=== PATIENT | male | born 1950 | race Caucasian/White ===

== ENCOUNTER → 2019-01-05 | Outpatient (CLI) | payer OTHER ==
--- NOTE | 2019-01-05 14:19 | RAD ---
EXAM: Knee,Right Complete CLINICAL HISTORY: PAIN IN RIGHT KNEE COMPARISON STUDY: None TECHNICAL: AP, lateral, oblique and sunrise x-rays of the right knee FINDINGS: Moderate to severe joint space loss of the medial compartment and minimal joint space loss of the lateral compartment. There are moderate to severe periarticular osteoarthritic changes medial and mild lateral. Patellofemoral joint shows mild to moderate osteoarthritic changes. There is no fracture or dislocation. There is a small joint effusion. Calcification is present within the lateral meniscus. IMPRESSION: 1. Moderate to severe osteoarthritic changes of the right knee medial compartment. 2. Milder osteophytic changes of the patellofemoral joint and lateral compartment. 3. Chondrocalcinosis of the lateral meniscus. Electronically signed by: Nishant Baron MD 01/05/2019 2:16 PM [facility]
--- NOTE | 2019-01-05 14:20 | RAD ---
EXAM: Pelvis and hip CLINICAL HISTORY: Pain COMPARISON STUDY: None TECHNICAL: AP pelvis FINDINGS: The pelvic ring is intact and negative. Both hips are in anatomic alignment. There is no identifiable fracture. There is no osseous abnormality. There are asymmetric degenerative disc changes the right side at L4-5 and L5-S1. IMPRESSION: Negative pelvis. Moderate degenerative disc changes at L4-5 and L5-S1. Electronically signed by: Nishant Baron MD 01/05/2019 2:17 PM [facility]
== END ==
LOC: RAD 09:00
PROVIDERS: ATTEND Orthopaedic Surgery
DX: M17.11 Unilateral primary osteoarthritis, right knee (principal); M51.36 Other intervertebral disc degeneration, lumbar region; M11.261 Other chondrocalcinosis, right knee; M25.551 Pain in right hip; M25.561 Pain in right knee

== ENCOUNTER 2019-01-06 05:34 | Inpatient (IN) | payer MEDICARE, OTHER ==
--- NOTE | 2018-12-22 08:31 | HP ---
CHIEF COMPLAINT: Right knee pain. HISTORY OF PRESENT ILLNESS: Mr. Orellana has a history of severe knee pain which has been refractory to conservative measures. Because of the refractory nature of his pain and his ongoing difficulty with daily activities, he has requested operative intervention. After discussing the risks, benefits and alternatives to that, he has given informed consent. PAST SURGICAL HISTORY: 1. Cardiac stent placement. 2. Cataract removal. 3. Partial knee replacement. MEDICATIONS: 1. Metoprolol. 2. Atorvastatin. 3. Pantoprazole. 4. Meloxicam. 5. Lisinopril. 6. Gabapentin. 7. Trulicity. 8. Multivitamins. 9. Triamterene. ALLERGIES: CODEINE. CODE STATUS: DNR. IMMUNIZATIONS: Up to date. FAMILY HISTORY: None pertinent to today's complaint. SOCIAL HISTORY: The patient does not drink, smoke or use any illicit drugs. REVIEW OF SYSTEMS: Negative except as indicated in the History of Present Illness. PHYSICAL EXAMINATION: VITAL SIGNS: Blood pressure 146/88. Pulse 64. Height 5'11". Weight 257 pounds. MENTAL STATUS: The patient is awake, alert, and is able to give a good history and participate in the physical. The patient is oriented to person, place and time. SKIN: Normal tone and turgor. HEENT: Normocephalic, atraumatic. Pupils equal, round and reactive. Mucosal membranes are moist. NECK: Normal range of motion. No thyromegaly, no lymphadenopathy. CHEST: Normal respiratory excursion. CARDIAC: Regular rate and rhythm. No murmurs, rubs or gallops. MUSCULOSKELETAL: The bilateral upper extremities show full active range of motion. He has intact sensation and they are warm and well perfused. He has no deformities, no crepitus. The left lower extremity shows full range of motion of the hip. He has full extension of the knee with flexion to about 125 degrees. He has no varus/valgus or anterior/posterior laxity. He does have some discomfort with palpation of the knee. Strength is 5/5. The extremity is warm and well perfused. The right lower extremity shows full range of motion of the hip. He has pain throughout the knee with palpation. He has crepitus throughout his range of motion, but maintains full extension with flexion to about 125 degrees. The entire extremity is warm and well perfused. He does have a slight varus deformity. IMAGING: X-rays show advanced arthritis. ASSESSMENT: 1. Arthritis. PLAN: The plan at this point is for total knee arthroplasty. We have discussed the risks, benefits, and alternatives to that and the patient has given informed consent. #[id number] [facility]TDD
[2019-01-06] MEDS ORDERED: TRANEXAMIC ACID 1,000 MG/10 ML VIAL ONE ×2 (05:49→05:50)
[2019-01-06] MEDS ORDERED: SODIUM CHL 0.9% 100ML MINI-BAG 100 ML IVPB ONE (05:49)
[2019-01-06] MEDS ORDERED: LACTATED RINGERS 1,000 ML ONE ×2 (05:49→09:59)
[2019-01-06] MEDS ORDERED: ceFAZolin SODIUM 1 GM VIAL ONE ×2 (05:50→06:31)
[2019-01-06] MEDS ORDERED: SODIUM CHLORIDE 0.9% 100ML 100 ML IVPB ONE (05:50)
[2019-01-06] MEDS ORDERED: SODIUM CHLORIDE 0.9% 250ML 250 ML ONE ×2 (05:50→17:34)
[2019-01-06] MEDS ORDERED: VANCOMYCIN HCL INJ 1,000 MG VIAL IVPB ONE ×2 (05:50→17:34)
[2019-01-06] MEDS ORDERED: ACETAMINOPHEN IV 1000MG 100 ML ONE (06:36)
[2019-01-06] MEDS ORDERED: MORPHINE SULF *EPIDURAL* 1 MG/ML VIAL ONE (06:37)
[2019-01-06] MEDS ORDERED: MIDAZOLAM INJ 2 MG/2 ML VIAL ONE (06:37)
[2019-01-06] MEDS ORDERED: fentaNYL CITRATE INJ 50 MCG/ML AMP ONE (06:37)
[2019-01-06] MEDS: VANCOMYCIN HCL INJ 1,000 MG VIAL IVPB ONE ×2 (07:46→09:03)
[2019-01-06] MEDS: ceFAZolin SODIUM 1 GM VIAL ONE ×2 (07:46→09:03)
[2019-01-06] MEDS: BUPIVACAINE LIPOSOME 13.3 MG/ML VIAL INJ ONE ×2 (07:47→09:03)
[2019-01-06] MEDS: BUPIVACAINE 0.5% 30 ML VIAL INJ ONE ×2 (07:47→09:03)
[2019-01-06] MEDS ORDERED: BUPIVACAINE LIPOSOME 13.3 MG/ML VIAL INJ ONE (08:26)
[2019-01-06] MEDS ORDERED: CYCLOBENZAPRINE HCL 10 MG TAB PO PRN (09:31)
[2019-01-06] MEDS ORDERED: BENZOCAINE-MENTH LOZ (CEPACOL) 1 EA LOZ MT PRN (09:31)
[2019-01-06] MEDS ORDERED: SODIUM CHLORIDE 0.9% (FLUSH) 10 ML SYG IV PRN (09:31)
[2019-01-06] MEDS ORDERED: NALOXONE HCL INJ 0.4 MG/ML VIAL IV PRN (09:31)
[2019-01-06] MEDS ORDERED: ACETAMINOPHEN 325 MG TAB PO PRN (09:31)
[2019-01-06] MEDS ORDERED: MORPHINE SULFATE INJ 10 MG/ML VIAL IM PRN (09:31)
[2019-01-06] MEDS ORDERED: ALUMINUM & MAGNESIUM HYDROXIDE 30 ML UD PO PRN (09:31)
[2019-01-06] MEDS ORDERED: TRANEXAMIC ACID INJ 1,000 MG in SODIUM CHLORIDE 0.9% 100ML 100 ML IVPB ONE (09:31)
[2019-01-06] MEDS ORDERED: PROMETHAZINE HCL INJ 12.5 MG in SODIUM CHLORIDE 0.9% 50ML 50 ML IVPB PRN (09:31)
[2019-01-06] MEDS ORDERED: ONDANSETRON INJ 4 MG/2 ML VIAL IV PRN (09:31)
[2019-01-06] MEDS ORDERED: TEMAZEPAM 15 MG CAP PO PRN (09:31)
[2019-01-06] MEDS ORDERED: MORPHINE SULFATE INJ 10 MG/ML VIAL IV PRN (09:31)
[2019-01-06] MEDS ORDERED: BISACODYL SUPPOSITORY 10 MG PR PRN (09:31)
[2019-01-06] MEDS ORDERED: ZOLPIDEM TARTRATE 5 MG TAB PO PRN (09:31)
[2019-01-06] MEDS ORDERED: HYDROcodone 5MG/APAP 325MG 1 EA TAB PO PRN (09:31)
[2019-01-06] MEDS ORDERED: MAGNESIUM HYDROXIDE 30 ML UD PO PRN (09:31)
[2019-01-06] MEDS ORDERED: ACETAMINOPHEN 500 MG TAB PO PRN (09:31)
[2019-01-06] MEDS ORDERED: PROMETHAZINE HCL INJ 25 MG in SODIUM CHLORIDE 0.9% 50ML 50 ML IVPB PRN (09:31)
[2019-01-06] MEDS ORDERED: DEX 5% W/NACL 0.45% 1000ML 1,000 ML IVS PRN (09:31)
[2019-01-06] MEDS ORDERED: METOCLOPRAMIDE HCL INJ 10 MG/2 ML VIAL IV ONE (10:00)
[2019-01-06] MEDS ORDERED: PROPOFOL 200 MG/20 ML VIAL IV ONE (10:00)
[2019-01-06] MEDS ORDERED: SODIUM CHLORIDE 0.9% 50 ML VIAL INJ ONE (10:00)
[2019-01-06] MEDS ORDERED: raNITIdine HCL INJ 25 MG/ML VIAL IV ONE (10:00)
[2019-01-06] MEDS ORDERED: MORPHINE PCA 1 MG/ML 100 ML BAG IVPB SCH (10:00)
[2019-01-06] MEDS ORDERED: IV SET AND CAP CHANGE INJ INJ SCH (10:00)
[2019-01-06] MEDS ORDERED: PHENYLEPHRINE INJ 1ML 10 MG/ML VIAL IV ONE (10:00)
[2019-01-06] MEDS ORDERED: LIDOCAINE 1% 10 ML VIAL INJ ONE (10:00)
[2019-01-06] MEDS ORDERED: ePHEDrine SULF 50 MG/ML IV ONE (10:00)
[2019-01-06] MEDS ORDERED: DEXAMETHASONE INJ 10 MG/ML VIAL IV ONE (10:00)
--- NOTE | 2019-01-06 14:12 | RAD ---
EXAM DESCRIPTION: Knee,Right 2 or More Views CLINICAL HISTORY: TKA COMPARISON: January 05, 2019 IMPRESSION: 2 views of the right knee show interval postsurgical changes from total knee arthroplasty with cement fixation of the tibial and femoral components. Soft tissue emphysema from recent surgery is seen. Mild vascular calcifications are seen. Electronically signed by: Joaquin Grove MD 01/06/2019 2:10 PM [facility]
[2019-01-06] MEDS ORDERED: GLUCAGON INJ 1 MG VIAL SUBCU PRN (15:17)
[2019-01-06] MEDS ORDERED: DEXTROSE 50% 25 GM/50 ML SYG IV PRN (15:17)
--- NOTE | 2019-01-06 15:32 | CONS ---
SUPERVISING PHYSICIAN: Joaquim Fisher MD CHIEF COMPLAINT: Right knee pain. HISTORY OF PRESENT ILLNESS: Mr. Orellana is a 68-year-old male patient that has a longstanding history of severe knee pain that has not responded to conservative treatment measures. The pain is starting to interfere with his activities of daily living and due to the refractory nature of the pain, he requested elective total knee arthroplasty. Today, he was admitted for an elective right total knee arthroplasty. He had no intraoperative complications. He was seen in the immediate postoperative state in stable condition. PAST MEDICAL HISTORY: 1. Type 2 diabetes mellitus, on Trulicity. 2. Hypertension. 3. History of coronary artery disease with history of previous myocardial infarction and 3 coronary stents. 4. Osteoarthritis. PAST SURGICAL HISTORY: 1. Bilateral cataracts. 2. Partial left knee replacement. 3. Cardiovascular stents x3. CURRENT MEDICATIONS: 1. Metamucil daily. 2. Trulicity 0.75 mg weekly. 3. Triamterene/hydrochlorothiazide 37.5-25 mg 1 daily. 4. Kenalog ointment as needed. 5. Tramadol 50 mg as needed. 6. Protonix 40 mg daily. 7. Metoprolol succinate ER 50 mg daily. 8. Mobic 15 mg daily. 9. Lisinopril 10 mg daily. 10. Neurontin 300 mg b.i.d. 11. Lipitor 40 mg at bedtime. 12. Proventil nebulizers 2.5 mg inhaled daily. ALLERGIES: CODEINE. FAMILY HISTORY: Mother at 87 years of age secondary to congestive heart failure. Father at age 70 with emphysema. He has 3 brothers, one at age 66 secondary to kidney cancer, another at age 5 years of age secondary to gunshot wound, and an 85-year-old brother that had a blood clot. He has two sisters that are fairly healthy. One has issues with seizures. Another had gout and arthritis. He has two children, one boy that has psoriatic arthritis and another one is healthy. SOCIAL HISTORY: The patient lives in [place], [place]. He is . He has a previous history of tobacco abuse, but stopped 7 years previously. Before that, he smoked for 50 years, 2 to 3 packs a day. He does not drink alcohol and denies any illicit drug use. REVIEW OF SYSTEMS: CONSTITUTIONAL: Denies any fevers, chills, general malaise or unexplained weight loss or gain. HEENT: Negative for headaches, visual change, sore throat, earaches. RESPIRATORY: Negative for shortness of breath, wheezing or cough. CARDIOVASCULAR: Negative for chest pain, palpitations or syncopal episodes. He has a history of previous myocardial infarction with 3 stents placed. GASTROINTESTINAL: Negative for nausea or vomiting, diarrhea, abdominal pain or constipation. GENITOURINARY: Negative for dysuria, hematuria, polyuria. EXTREMITIES: Per history of present illness. NEUROLOGIC: Negative for seizure activity, ataxia, syncopal episodes, headaches. HEMATOLOGICAL: Negative for any unexplained bleeding, easy bruising. INTEGUMENTARY: Negative for rashes, lesions or sores. PHYSICAL EXAMINATION: VITAL SIGNS: Temperature 97.1. Pulse 76. Blood pressure 102/63. Respiratory rate 16. Saturation 94% on 2 liters nasal cannula at rest. Admission weight 115.0 kg. GENERAL: The patient appears to be comfortable, in no acute distress. He alert. HEENT: Tympanic membranes clear bilaterally. Oropharynx is pink, moist without any lesions. NECK: Supple, nontender with full range of motion. No jugular venous distention noted. RESPIRATORY: Lungs clear to auscultation bilaterally without any rhonchi, wheezes, or rales. CARDIOVASCULAR: Regular rate and rhythm without any appreciable murmurs, gallops, or rubs. ABDOMEN: Obese, but soft, nontender. Positive bowel sounds. EXTREMITIES: The right knee has Iceman and bulky dressing in place. Distally, pulses are 2+ bilaterally with capillary refill brisk. NEUROLOGIC: The patient is alert and oriented times three. SKIN: Warm, pink and dry. LABORATORY: Postoperative hemoglobin and hematocrit pending. Urine drug screen was negative. ASSESSMENT: 1. Severe osteoarthritis of the right knee, failing to respond to conservative treatment measures requiring surgical intervention with right total knee arthroplasty for symptom control, performed by Dr. Luke Lim. Postoperative day 0. 2. History of hypertension. 3. History of type 2 diabetes mellitus, on Trulicity. 4. History of coronary artery disease with previous myocardial infarction in 2013 and 3 previous coronary stents. PLAN: We will follow the patient as he progresses through his postoperative state, physical therapy and rehabilitation efforts. The family and the patient have discussed discharge planning and they have planned and set up arrangements to have continued treatment through the [facility] in [place], [place]. We will defer orthopedic management to Dr. Lim and physical therapy. We will continue to monitor the patient as needed. We will anticipate length of stay to be 2 to 3 days. We will resume his home medications as appropriate once those have been updated and verified. He will be on DVT prophylaxis per protocol. He will also be on insulin sliding scale per protocol. Until he can transition to outpatient management, we will continue to monitor and treat as needed. #[id number] [facility]
[2019-01-06] MEDS ORDERED: ceFAZolin SODIUM 2 GRAMS PREMI 50 ML IVPB ONE ×2 (16:54→19:28)
[2019-01-06] MEDS: INSULIN LISPRO 100 UNITS/ML PEN SUBCU SCH ×2 (16:59→20:53)
[2019-01-06] MEDS: CELECOXIB 100 MG CAP PO SCH (17:26)
[2019-01-06] MEDS: ceFAZolin SODIUM 2 GRAMS PREMI 2 GM in PREMIX BAG 1 BAG IVPB SCH ×2 (17:27→23:34)
[2019-01-06] MEDS: VANCOMYCIN HCL INJ 1,000 MG in SODIUM CHLORIDE 0.9% 250ML 250 ML IVPB SCH (18:04)
[2019-01-06] MEDS: SODIUM CHLORIDE 0.45% 1000ML 1,000 ML IVS PRN (19:05)
[2019-01-06] MEDS ORDERED: ENOXAPARIN SODIUM 30 MG/0.3 ML SYG SUBCU ONE (19:30)
[2019-01-06] MEDS: GABAPENTIN 300 MG CAP PO SCH (20:52)
[2019-01-06] MEDS: ATORVASTATIN 20 MG TAB PO SCH (20:52)
[2019-01-06] MEDS: DOCUSATE CALCIUM 240 MG CAP PO SCH (20:52)
[2019-01-06] MEDS: METOPROLOL SUCCINATE XL 50 MG TAB PO SCH (20:53)
[2019-01-06] MEDS: ENOXAPARIN SODIUM 30 MG/0.3 ML SYG SUBCU SCH (23:35)
[2019-01-07] MEDS ORDERED: VANCOMYCIN HCL INJ 1,000 MG VIAL IVPB ONE (00:33)
[2019-01-07] MEDS ORDERED: PANTOPRAZOLE SODIUM TAB 40 MG PO ONE (00:33)
[2019-01-07] MEDS ORDERED: SODIUM CHLORIDE 0.9% 250ML 250 ML ONE (00:33)
[2019-01-07] MEDS ORDERED: diphenhydrAMINE HCL 50 MG/ML VIAL ONE (01:46)
[2019-01-07] MEDS ORDERED: diphenhydrAMINE HCL 50 MG/ML VIAL IV PRN (01:47)
[2019-01-07] MEDS: VANCOMYCIN HCL INJ 1,000 MG in SODIUM CHLORIDE 0.9% 250ML 250 ML IVPB SCH (06:10)
[2019-01-07] MEDS: PANTOPRAZOLE SODIUM TAB 40 MG PO SCH (06:12)
[2019-01-07] MEDS: INSULIN LISPRO 100 UNITS/ML PEN SUBCU SCH ×4 (07:42→20:55)
[2019-01-07] MEDS ORDERED: ceFAZolin SODIUM 2 GRAMS PREMI 50 ML IVPB ONE (07:44)
[2019-01-07] MEDS: CELECOXIB 100 MG CAP PO SCH ×2 (07:52→16:46)
[2019-01-07] MEDS: ceFAZolin SODIUM 2 GRAMS PREMI 2 GM in PREMIX BAG 1 BAG IVPB SCH (07:54)
[2019-01-07] MEDS: GABAPENTIN 300 MG CAP PO SCH ×2 (08:23→20:39)
[2019-01-07] MEDS: HCTZ 25 MG/TRIAMTERENE 37.5 MG 1 EA CAP PO SCH (08:23)
[2019-01-07] MEDS: MAGNESIUM OXIDE 400 MG TAB PO SCH (08:23)
[2019-01-07] MEDS: traMADol HCL 50 MG TAB PO PRN ×3 (08:23→16:45)
[2019-01-07] MEDS: LISINOPRIL 10 MG TAB PO SCH (08:24)
[2019-01-07] MEDS: PSYLLIUM 48.57% PO SCH (08:28)
[2019-01-07] MEDS: ENOXAPARIN SODIUM 30 MG/0.3 ML SYG SUBCU SCH ×2 (10:42→22:49)
--- NOTE | 2019-01-07 13:01 | PN ---
DATE: 01/06/19 POSTOPERATIVE CHECK SUBJECTIVE: Mr. Orellana is doing well. He has no pain. OBJECTIVE: Afebrile. Vital signs stable. Dressing is clean, dry and intact. ASSESSMENT: Status post total knee arthroplasty. PLAN: He will begin weightbearing as tolerated on postoperative day 1. #[id number] [facility]
--- NOTE | 2019-01-07 13:03 | PN ---
DATE: 01/07/19 SUBJECTIVE: Mr. Orellana is doing well. He is up to a chair and has walked with physical therapy. OBJECTIVE: Afebrile. Vital signs stable. Dressing is clean, dry and intact. ASSESSMENT: Status post total knee arthroplasty. PLAN: The plan at this point is for him to continue weightbearing as tolerated. We will consider discharge on postoperative day 2. #[id number] [facility]D
[2019-01-07] MEDS: SODIUM CHLORIDE 0.45% 1000ML 1,000 ML IVS PRN (18:33)
[2019-01-07] MEDS ORDERED: ALBUTEROL SULFATE 2.5 MG/3 ML VIAL NEB PRN (18:40)
[2019-01-07] MEDS ORDERED: SODIUM CHLORIDE 0.9% 500ML 500 ML IVS ONE (18:47)
[2019-01-07] MEDS: KCL 20MEQ/0.45% NS 1,000 ML IVS PRN (19:40)
[2019-01-07] MEDS: ATORVASTATIN 20 MG TAB PO SCH (20:39)
[2019-01-07] MEDS: METOPROLOL SUCCINATE XL 50 MG TAB PO SCH ×2 (20:39)
[2019-01-07] MEDS: DOCUSATE CALCIUM 240 MG CAP PO SCH (20:39)
--- NOTE | 2019-01-07 20:46 | PN ---
DATE: 01/07/19 SUPERVISING PHYSICIAN: Joaquim Fisher M.D. SUBJECTIVE: The patient this morning did fairly well with his physical therapy. His pain is fairly well controlled. Blood pressures have a tendency to show some mild hypotension. Will closely monitor his O's. He is not showing any other symptoms and he has been afebrile but without any evidence of tachycardia. OBJECTIVE: VITAL SIGNS: Temperature 99.1, pulse 67, blood pressure 115/71, respirations 18, satting 92% on room air. I's and O's show a positive balance of 190 with 1070 in, 880 out with weight at 115.0 kg. CHEST: Clear to auscultation. HEART: Regular rate and rhythm. ABDOMEN: Obese but soft, non- tender. Positive bowel sounds. EXTREMITIES: Right knee has a bulky dressing in place. Capillary refill is brisk, 2+ bilateral lower extremity pulses with sensation intact. NEUROLOGIC: He is alert and oriented times three. LABORATORY: Postoperative H&H is 12.8 and 38.7 respectively. ASSESSMENT: 1. Severe osteoarthritis involving the right knee, failing to respond to conservative outpatient treatment measures requiring elective surgical intervention with right total knee arthroplasty for symptom control, performed by Dr. Luke Lim. Postoperative day #1. 2. History of hypertension, stable. 3. History of type 2 diabetes mellitus, on Trulicity showing to be fairly stable. 4. History of coronary artery disease with previous myocardial infarction in 2013 and 3 previous coronary stents. PLAN: Will continue to follow the patient as he progresses through his postoperative phase of rehabilitation and physical therapy. Will defer further orthopedic management to Dr. Lim and physical therapist. Will continue to monitor his vital signs and treat his blood pressure as needed. Will resume his medications. Will hopefully be able to anticipate discharging in the next 24 to 48 hours. Plan at discharge would be to continue with [facility] rehabilitation in [place], [place]. Until he can transition to outpatient management will continue to monitor and treat as needed. #[id number] [facility]
[2019-01-08] MEDS: KCL 20MEQ/0.45% NS 1,000 ML IVS PRN (03:08)
[2019-01-08] MEDS: traMADol HCL 50 MG TAB PO PRN (06:14)
[2019-01-08] MEDS: PANTOPRAZOLE SODIUM TAB 40 MG PO SCH (06:14)
[2019-01-08] MEDS: INSULIN LISPRO 100 UNITS/ML PEN SUBCU SCH (07:24)
[2019-01-08] MEDS: CELECOXIB 100 MG CAP PO SCH (07:47)
--- NOTE | 2019-01-08 08:40 | PN ---
DATE: 01/08/19 SUBJECTIVE: Mr. Orellana is doing well and he is requesting discharge today. OBJECTIVE: Afebrile. Vital signs stable. Wound is clean. There are no signs or symptoms of infection. ASSESSMENT: Status post total knee arthroplasty. PLAN: The plan at this point is to discharge Mr. Orellana with appropriate followup. He will begin outpatient physical therapy. #[id number] [facility]
--- NOTE | 2019-01-08 08:45 | OP ---
DATE OF PROCEDURE: 01/06/19 PREOPERATIVE DIAGNOSIS: 1. Osteoarthritis of the knee. POSTOPERATIVE DIAGNOSIS: 1. Osteoarthritis of the knee. PROCEDURE: 1. Total knee arthroplasty. SURGEON: Luke Lim MD. AGRICULTURE PROFESSOR: Lee Fisher CST, SA-C. ANESTHESIA: General anesthesia. COMPLICATIONS: None. FINDINGS: Severe osteoarthritis. INDICATION: Mr. Orellana has a history of severe pain in the knee which has been refractory to conservative measures. Because of the refractory nature of the pain, he has requested operative intervention. After discussing the risks, benefits and alternatives to that, the patient has given informed consent for total knee arthroplasty. PROCEDURE: The patient was brought to the Operating Room and placed in supine position. General anesthesia was induced and the patient's leg was sterilely prepped and draped. Following prepping and draping, the distal femur was exposed and using an intramedullary guide, the distal femoral cut was made. The appropriate sized cutting block was measured, pinned into place, and the anterior, posterior, and chamfer cuts were made. The ACL was transected and the tibia was subluxed. Both the medial and lateral menisci were removed. An intramedullary guide was used to make the proximal tibial cut. The appropriate sized base plate was placed and a trial polyethylene was placed. The trial femur was placed, the knee was reduced, and the knee was taken through a range of motion. The knee was stable in anterior, posterior, varus and valgus stress. The patella tracked anatomically without evidence of subluxation or dislocation. After trialing, the trial components were removed and the bony surfaces were thoroughly irrigated with saline. Following irrigation, the surfaces were dried and the final components were cemented into place. The excess cement was removed and the remaining cement was allowed to cure. The knee was again taken through a range of motion to confirm stability. The wound was then irrigated with saline and closure was performed using PDS to approximate the arthrotomy followed by closure of the subcutaneous tissues with a combination of running and interrupted Monocryl sutures. Sterile dressing was placed. The patient was awoken from anesthesia and taken to Recovery. POSTOPERATIVE PLAN: The patient will be weight-bearing as tolerated on postoperative day 1. COMPONENTS: 21GRAMS Triathlon knee, size 5 femur, size 6 tibia, 13 mm insert. #[id number] [facility]
[2019-01-08] MEDS ORDERED: SODIUM CHLORIDE 0.9% (FLUSH) 10 ML SYG IV SCH (09:00)
[2019-01-08] MEDS: HCTZ 25 MG/TRIAMTERENE 37.5 MG 1 EA CAP PO SCH ×2 (09:13→09:15)
[2019-01-08] MEDS: MAGNESIUM OXIDE 400 MG TAB PO SCH (09:13)
[2019-01-08] MEDS: GABAPENTIN 300 MG CAP PO SCH (09:13)
[2019-01-08] MEDS: LISINOPRIL 10 MG TAB PO SCH (09:13)
[2019-01-08] MEDS: PSYLLIUM 48.57% PO SCH (09:14)
[2019-01-08 10:26] VITALS: BP 99/66; TEMP 98.6; O2SAT 92
[2019-01-09] MEDS ORDERED: BISACODYL SUPPOSITORY 10 MG PR ONE (21:00)
[2019-01-09] MEDS ORDERED: MAGNESIUM HYDROXIDE 30 ML UD PO ONE (21:00)
--- NOTE | 2019-01-19 14:37 | DS ---
SUPERVISING PHYSICIAN: Joaquim Fisher MD ADMISSION DIAGNOSIS: 1. Severe osteoarthritis of the right knee, failing to respond to conservative treatment measures requiring surgical intervention with right total knee arthroplasty for symptom control, performed by Dr. Luke Lim. Postoperative day 0. 2. History of hypertension. 3. History of type 2 diabetes mellitus, on Trulicity. 4. History of coronary artery disease with previous myocardial infarction in 2013 and 3 previous coronary stents. DISCHARGE DIAGNOSIS: 1. Severe osteoarthritis involving the right knee, failing to respond to conservative outpatient treatment measures requiring elective surgical intervention with right total knee arthroplasty for symptom control, performed by Dr. Luke Lim. Postoperative day #2. 2. History of hypertension, stable. 3. History of type 2 diabetes mellitus, on Trulicity showing to be fairly stable. 4. History of coronary artery disease with previous myocardial infarction in 2013 and 3 previous coronary stents. REASON FOR HOSPITALIZATION: Mr. Orellana is a 68-year-old male patient that has a longstanding history of severe knee pain that has not responded to conservative treatment measures. The pain is starting to interfere with his activities of daily living and due to the refractory nature of the pain, he requested elective total knee arthroplasty. Today, he was admitted for an elective right total knee arthroplasty. He had no intraoperative complications. He was seen in the immediate postoperative state in stable condition. LABORATORY: Postoperative hemoglobin 12.8 and hematocrit 38.7. Repeat was 11.7 and 35.8. Chemistries showed blood sugars between 140 and 239. Urine drug screen was negative. RADIOLOGY: No additional radiographic studies. HOSPITAL COURSE: Mr. Orellana was admitted on 01/06/19 for elective right total knee arthroplasty after failing to respond to outpatient treatment measures. He was seen in the immediate postoperative state. He had no intraoperative complications. He was able to progress with physical therapy and had good pain control. He was felt well enough to manage in the outpatient clinical setting. PLAN: Mr. Orellana was discharged on 01/08/19 with instructions to followup with Dr. Lim on 01/19/19 at 8:AM. He was to continue with outpatient management and physical therapy at [facility] to begin Saturday after discharge. He was to followup in the [place] clinic. Diet was to resume regular diet as tolerated. Activity per physical therapy. Wound management as per Dr. Lim's postoperative wound management. Medications prescribed at discharge include: 1. Xarelto 10 mg, #9, no refills. 2. Tramadol 50 mg q.4h. as needed, #30, no refills. All other medications prior to hospital were continued as was prior to surgical procedure. CONDITION AT DISCHARGE: Stable and improving. DISPOSITION: The patient was discharged home. #[id number] [facility]
== END 2019-01-08 10:05 | disposition home or self-care (01) | DRG 470 ==
LOC: AMB 05:34 → MS 10:40
PROVIDERS: ADMIT Orthopaedic Surgery; ATTEND Nurse Practitioner Family
PROC: 3E0T3BZ Introduction of Anesthetic Agent into Peripheral Nerves and Plexi, Percutaneous Approach (ICD-10-PCS; 2019-01-06)
PROC: 0SRC0J9 Replacement of Right Knee Joint with Synthetic Substitute, Cemented, Open Approach (ICD-10-PCS; principal; 2019-01-06 07:01)
DX: M17.11 Unilateral primary osteoarthritis, right knee (principal); I95.9 Hypotension, unspecified; I10 Essential (primary) hypertension; I25.2 Old myocardial infarction; E11.9 Type 2 diabetes mellitus without complications; K21.9 Gastro-esophageal reflux disease without esophagitis; E66.9 Obesity, unspecified; I25.10 Atherosclerotic heart disease of native coronary artery without angina pectoris; J44.9 Chronic obstructive pulmonary disease, unspecified; Z95.5 Presence of coronary angioplasty implant and graft; Z79.891 Long term (current) use of opiate analgesic; Z79.1 Long term (current) use of non-steroidal anti-inflammatories (NSAID); Z66 Do not resuscitate; Z68.35 Body mass index [BMI] 35.0-35.9, adult

== ENCOUNTER → 2019-07-16 | Outpatient (CLI) | payer OTHER ==
--- NOTE | 2019-07-16 10:32 | RAD ---
EXAM DESCRIPTION: Knee,Right Complete CLINICAL HISTORY: 69 years, Male, M25.561,M25.551. Pain. COMPARISON: 01/06/2019 TECHNIQUE: Four views of the right knee FINDINGS: Changes of right total knee arthroplasty without hardware fracture or displacement. No osteolysis. There is stable osseous alignment. No acute displaced fracture or dislocation is seen. Trace right knee joint effusion. The soft tissues are unremarkable. IMPRESSION: 1. Right total knee arthroplasty without hardware complication. Electronically signed by: Cameron Jaquez DO 07/16/2019 10:30 AM CDT
--- NOTE | 2019-07-16 10:35 | RAD ---
EXAM DESCRIPTION: Pelvis CLINICAL HISTORY: 69 years Male, M25.561,M25.551. Pain. COMPARISON: 01/05/2019. FINDINGS: Single frontal view of the pelvis demonstrate no acute displaced fracture or dislocation. No focal bony erosion or aggressive periosteal reaction seen. Mild bilateral hip osteoarthrosis changes with joint space narrowing, subchondral sclerosis and small marginal osteophyte formation. Mild degenerative changes of the bilateral sacroiliac joints and symphysis pubis. There is moderate lower lumbar spine degenerative changes. IMPRESSION: 1. No acute osseous abnormality. 2. Degenerative changes as above. Electronically signed by: Cameron Jaquez DO 07/16/2019 10:33 AM CDT
== END ==
LOC: RAD 09:34
PROVIDERS: ATTEND Orthopaedic Surgery
DX: M16.0 Bilateral primary osteoarthritis of hip (principal); M47.898 Other spondylosis, sacral and sacrococcygeal region; M47.896 Other spondylosis, lumbar region; Z96.651 Presence of right artificial knee joint

== ENCOUNTER → 2021-01-02 | Outpatient (CLI) | payer MEDICARE, OTHER ==
--- NOTE | 2021-01-02 12:41 | RAD ---
EXAM DESCRIPTION: Shoulder,Left x-ray four Views CLINICAL HISTORY: pain in left shoulder COMPARISON: None Available. TECHNIQUE: Four x-ray views of the left shoulder. FINDINGS: There is adequate internal and external rotation. Normal glenohumeral alignment on transscapular Y view and transaxillary view. There is no fracture or dislocation. Moderate degenerative spurring at the inferior glenoid with large osteophyte at the medial humeral head neck junction. Marked sclerosis of the glenoid with complete cartilage loss. Slightly flattened sclerotic appearance of the humeral head. AC joint appears intact. No focal bone lesion. IMPRESSION: Degenerative changes as described. Electronically signed by: Haresh Guidry MD 01/02/2021 12:40 PM [facility]
== END ==
LOC: RAD 08:35
PROVIDERS: ATTEND Orthopaedic Surgery
DX: M19.012 Primary osteoarthritis, left shoulder (principal)